=== PATIENT | female | born 1975 | race Caucasian/White ===

== ENCOUNTER 2018-06-07 21:06 | Emergency (ER) | payer OTHER ==
[2018-06-07 21:43] VITALS: RESP 18; TEMP 98.6; O2SAT 100
--- NOTE | 2018-06-07 22:29 | C.PDOC ---
History Of Present Illness 42 year old female presents to the ED c/o right neck pain radiating down her right arm since January. Patient reports pain worsened today which prompted the visit. Patient is currently 20 weeks and is not taking any medications for her pain. Patient denies fever, chills, nausea, vomit, diarrhea, abdominal pain, vaginal bleeding, vaginal discharge. Time Seen by Provider: 06/07/18 21:49 Chief Complaint (Nursing): Upper Extremity Problem/Injury History Per: Patient History/Exam Limitations: no limitations Onset/Duration Of Symptoms: Persistent (sicen January) Current Symptoms Are (Timing): Still Present Quality: "Pain" Exacerbating Factor(s): Strenuous Use Of Affected Area Recent travel outside of the [place]: No Additional History Per: Patient Past Medical History Reviewed: Historical Data, Nursing Documentation, Vital Signs Vital Signs: Last Vital Signs Temp 98.6 F 06/07/18 21:36 Pulse 72 06/07/18 21:36 Resp 18 06/07/18 21:36 BP 123/75 06/07/18 21:36 Pulse Ox 100 06/07/18 21:36 - Medical History PMH: No Chronic Diseases Surgical History: No Surg Hx Family History: States: Unknown Family Hx - Social History Hx Alcohol Use: No Hx Substance Use: No - Immunization History Hx Tetanus Toxoid Vaccination: No Hx Influenza Vaccination: No Hx Pneumococcal Vaccination: No Review Of Systems Constitutional: Negative for: Fever, Chills Cardiovascular: Negative for: Chest Pain Respiratory: Negative for: Shortness of Breath Gastrointestinal: Negative for: Nausea, Vomiting, Abdominal Pain Musculoskeletal: Positive for: Neck Pain, Arm Pain Skin: Negative for: Rash Physical Exam - Physical Exam Appears: Non-toxic, In Acute Distress Skin: Normal Color, Warm, Dry Head: Atraumatic, Normacephalic Eye(s): bilateral: Normal Inspection Neck: Normal ROM, Paracervical Tenderness (right sided neck), Supple Chest: Symmetrical Cardiovascular: Rhythm Regular Respiratory: Decreased Breath Sounds, No Rales, No Rhonchi, No Wheezing Gastrointestinal/Abdominal: Soft, No Tenderness, No Guarding, No Rebound, Other (gravid) Extremity: Normal ROM, Tenderness (posterior right shoulder), Capillary Refill (< 2 seconds), No Swelling Pulses: Left Radial: Normal, Right Radial: Normal Neurological/Psych: Oriented x3, Normal Speech, Normal Cognition, Normal Motor, Normal Sensation Gait: Steady ED Course And Treatment O2 Sat by Pulse Oximetry: 100 (ON RA) Pulse Ox Interpretation: Normal Progress Note: Plan: - Tylenol 975 mg PO Disposition Counseled Patient/Family Regarding: Diagnosis, Need For Followup, Rx Given - Disposition Referrals: [facility] [Outside] Disposition: HOME/ ROUTINE Disposition Time: 22:30 Condition: STABLE Additional Instructions: FOLLOW UP WITH YOUR DOCTOR OR MEDICAL CLINIC IN 1-2 DAYS USE TYLENOL NEEDED FOR PAIN RETURN TO ER IF SYMPTOMS WORSEN Prescriptions: Acetaminophen [Tylenol 325mg tab] 650 mg PO Q6 PRN #30 tab PRN Reason: pain/fever Instructions: Radiculopathy (DC) Forms: [employer] (I[place]ic) Print Language: EAST TIMORESE - POA Present On Arrival: None - Clinical Impression Clinical Impression: Cervical radiculopathy - Scribe Statement The provider has reviewed the documentation as recorded by the Scribe Aman Dillard All medical record entries made by the Scribe were at my direction and personally dictated by me. I have reviewed the chart and agree that the record accurately reflects my personal performance of the history, physical exam, medical decision making, and the department course for this patient. I have also personally directed, reviewed, and agree with the discharge instructions and disposition.
[2018-06-07 22:36] VITALS: BP 122/75; PULSE 70
== END 2018-06-07 22:37 | disposition home or self-care (01) ==
LOC: C.ER 21:06
DX: M54.12 Radiculopathy, cervical region (principal)